=== PATIENT | female | born 1965 | race Hispanic/Latino ===

== ENCOUNTER 2017-12-19 16:11 | Outpatient (CLI) | payer BC ==
--- NOTE | 2017-12-19 18:56 | RAD ---
FOUR VIEWS LUMBAR SPINE INCLUDING AP, LATERAL, FLEXION AND EXTENSION VIEWS: 12/19/17 HISTORY: Back pain. Four views lumbar spine demonstrate small anterior osteophytes involving the L1 through L5 levels. No evidence of acute fractures or bony lesions seen. Disc spaces are fairly well maintained. No signifi cant jose daniel or retrolisthesis seen on flexion or extension views. No evidence of significant subluxat ion seen. IMPRESSION: Mild to moderate anterior osteophytes with no evidence of significant facet instability seen. POS: [facility]BAR[facility]
--- NOTE | 2017-12-19 18:57 | RAD ---
LEFT KNEE FOUR VIEW 12/19/17 HISTORY: Knee pain. COMPARISON: None. FINDINGS: There is a small inferior pole patellar enthesophyte. There is very mild medial compartment joint spa ce narrowing with small osteophyte formation. IMPRESSION: Low grade medial compartment degenerative disease. POS: CET
== END 2017-12-19 16:12 | disposition home or self-care (01) ==
LOC: SCSRAD 16:11
PROVIDERS: ATTEND Family Medicine
DX: M54.5 Low back pain (principal); M25.562 Pain in left knee; M17.12 Unilateral primary osteoarthritis, left knee; M47.816 Spondylosis without myelopathy or radiculopathy, lumbar region
CPT/HCPCS: 72110